=== PATIENT | male | born 1950 | race Caucasian/White ===

== ENCOUNTER 2016-10-13 19:57 | Observation (INO) | payer OTHER ==
[~2016-10-13] VITALS: Ht 190.5 cm; Wt 108.9 kg
[2016-10-13 21:29] LABS: HEMATOCRIT 44.4 % (38.0-50.0); MCH 30.5 PG (29.0-34.0); MCHC 35.4 G/DL (30.0-36.0); MCV 86.2 FL (86-99); MEAN PLAT.VOLUME 10.3 uM^3 (9.0-12.4); PLATELET COUNT 201 K/uL (156-360); RBC DIS.WIDTH-CV 11.7 % (11.8-14.6); RBC DIS.WIDTH-SD 37.2 % (39-53); RED BLOOD COUNT 5.15 M/uL (4.00-5.50); WHITE BLOOD COUNT 10.1 K/uL (4.1-10.2)
[2016-10-13 21:39] LABS: CHLORIDE 94 mEq/L (99-109); POTASSIUM 4.7 mEq/L (3.7-5.4); SODIUM 126 mEq/L (136-147)
[2016-10-13 21:42] LABS: ANION GAP 11 MEQ/L (2-14)
[2016-10-13 21:45] LABS: GFR ESTIMATE (CALCULATED) 50 mL/min/; UREA NITROGEN (BUN) 22 mg/dL (9-23)
[2016-10-13 21:53] LABS: GLUCOSE 574 mg/dL (70-99)
[2016-10-13 22:19] LABS: CARBON DIOXIDE (BICARBONATE) 23.5 MEQ/L (20-31)
[2016-10-13 23:31] LABS: TOTAL BILIRUBIN 0.8 mg/dL (0.0-1.0)
[2016-10-13 23:32] LABS: ALKALINE PHOSPHATASE 72 IU/L (3-129)
[2016-10-13 23:34] LABS: INTER. NORMALIZED RATIO 1.1; PTT 35.8 (25-32)
[2016-10-13 23:35] LABS: DIRECT BILIRUBIN 0.3 mg/dL (0.0-0.3); EOSINOPHIL (%) 0.5 % (0-5); EOSINOPHIL COUNT 0.1 K/uL (0-0.3); IMMATURE GRANULOCYTE (%) 0.9 % (0.0-0.7); IMMATURE GRANULOCYTE COUNT 0.1 K/uL; INSTRUMENT ABS NEUTROPHIL CT 9.1 K/uL; LYMPHOCYTE COUNT 0.4 K/uL (1.0-2.8); MONOCYTE (%) 3.4 % (3-12); MONOCYTE COUNT 0.3 K/uL (0-0.8); NEUTROPHIL (%) 91.5 % (45-76); NEUTROPHIL COUNT 9.1 K/uL (1.8-6.4)
[2016-10-13 23:36] LABS: CREATINE KINASE 85 IU/L (1-294); LIPASE 7 U/L (1.0-51.0)
[2016-10-13 23:37] LABS: TROP-I INTERPRETATION NEGATIVE; TROPONIN-I < 0.01 ng/mL (0.0-0.30)
[2016-10-14] MEDS ORDERED: METFORMIN HCL500 MG PO (00:12)
[2016-10-14] MEDS ORDERED: AMLODIPINE BESY10 MG PO (00:12)
[2016-10-14] MEDS ORDERED: BYSTOLIC5 MG PO (00:12)
[2016-10-14] MEDS ORDERED: STOOL SOFTENER100 MG PO (00:13)
[2016-10-14] MEDS ORDERED: POTASSIUM-9999 MG PO (00:13)
[2016-10-14] MEDS ORDERED: ONE-A-DAY ESSE1 EAC1 PO (00:13)
[2016-10-14] MEDS ORDERED: ASCORBIC ACID500 M3 PO (00:13)
[2016-10-14] MEDS ORDERED: LO-DOSE ASPIRIN81 M2 PO (00:13)
[2016-10-14] MEDS ORDERED: PLAVIX75 MG PO (00:13)
[2016-10-14] MEDS ORDERED: FLUID PILL PO (00:14)
[2016-10-14 00:32] LABS: ADD MIUA? NO; BILIRUBIN NEGATIVE; BLOOD NEGATIVE; COLOR STRAW ((YELLOW)); GLUCOSE (STRIP) >=500; KETONES NEGATIVE; LEUKOCYTES NEGATIVE; NITRITE NEGATIVE; PROTEIN (STRIP) NEGATIVE; SPECIFIC GRAVITY 1.017 (1.000-1.030); UCUL ADDED? NO; UROBILINOGEN 0.2 MG/DL (0.2-1.0)
[2016-10-14 00:59] LABS: POINT-OF-CARE METER ID UU14100415
[2016-10-14 02:27] VITALS: BP 124/60
[2016-10-14 02:44] LABS: POINT-OF-CARE METER ID UU13113700
[2016-10-14 05:27] LABS: POINT-OF-CARE METER ID UU13113831
[2016-10-14 06:29] LABS: EOSINOPHIL (%) 0.1 % (0-5); HEMATOCRIT 44.3 % (38.0-50.0); IMMATURE GRANULOCYTE COUNT 0.1 K/uL; INSTRUMENT ABS NEUTROPHIL CT 6.2 K/uL; LYMPHOCYTE COUNT 0.6 K/uL (1.0-2.8); MCH 31.1 PG (29.0-34.0); MCHC 35.2 G/DL (30.0-36.0); MCV 88.2 FL (86-99); MEAN PLAT.VOLUME 10.1 uM^3 (9.0-12.4); MONOCYTE (%) 2.3 % (3-12); MONOCYTE COUNT 0.2 K/uL (0-0.8); NEUTROPHIL (%) 87.5 % (45-76); NEUTROPHIL COUNT 6.2 K/uL (1.8-6.4); PLATELET COUNT 182 K/uL (156-360); RBC DIS.WIDTH-CV 11.9 % (11.8-14.6); RED BLOOD COUNT 5.02 M/uL (4.00-5.50); WHITE BLOOD COUNT 7.1 K/uL (4.1-10.2)
[2016-10-14 07:01] LABS: ALKALINE PHOSPHATASE 73 IU/L (3-129); ANION GAP 8 MEQ/L (2-14); C-REACTIVE PROTEIN 139.7 MG/L (0-10); CHLORIDE 100 MEQ/L (99-109); GFR ESTIMATE (CALCULATED) > 59 mL/min/; GLUCOSE 328 mg/dL (70-99); MAGNESIUM 2.3 mg/dl (1.3-2.7); POTASSIUM 4.6 MEQ/L (3.7-5.4); SAMPLE HEMOLYSIS CHECK 0; SAMPLE ICTERIC CHECK 0; SAMPLE LIPEMIA CHECK 0; TOTAL BILIRUBIN 0.5 MG/DL (0.0-1.0); UREA NITROGEN (BUN) 24 mg/dL (9-23)
[2016-10-14 07:05] LABS: SODIUM 133 MEQ/L (136-147)
[2016-10-14 08:00] VITALS: BP 132/66
[2016-10-14 08:22] LABS: Estimated Average Glucose 246 mg/dL (70-123); HEMOGLOBIN A1c (GLYCOHEMOGLOB) 10.2 % HGB (Below 5.7)
[2016-10-14 08:30] LABS: ERTH.SED.RATE 24 MM/HR (0-20)
[2016-10-14 11:52] VITALS: BP 136/64
[2016-10-14] MEDS ORDERED: BENADRYL25 MG PO (12:50)
[2016-10-14] MEDS ORDERED: PREDNISONE5 MG PO (12:50)
[2016-10-14] MEDS ORDERED: FAMOTIDINE20 MG PO (12:50)
[2016-10-14 14:17] LABS: POINT-OF-CARE METER ID UU13113831
== END 2016-10-14 14:24 | disposition home or self-care (01) ==
LOC: EME 19:57 → EDOF 10-14 00:39 → 5WEST 10-14 02:08
PROVIDERS: Emergency Medicine; Hospitalist; Internal Medicine; Physician Assistant Medical
DX: L27.0 Generalized skin eruption due to drugs and medicaments taken internally (principal); T37.0X5A Adverse effect of sulfonamides, initial encounter; R50.9 Fever, unspecified; E11.65 Type 2 diabetes mellitus with hyperglycemia; E87.1 Hypo-osmolality and hyponatremia; E86.0 Dehydration; I10 Essential (primary) hypertension; I25.10 Atherosclerotic heart disease of native coronary artery without angina pectoris; M50.30 Other cervical disc degeneration, unspecified cervical region; Z85.828 Personal history of other malignant neoplasm of skin; E83.51 Hypocalcemia; Z95.5 Presence of coronary angioplasty implant and graft; E78.5 Hyperlipidemia, unspecified
CPT/HCPCS: 71020; 80048; 80053; 80076; 81003; 82010; 82550; 82803; 82948; 83036; 83605; 83690; 83735; 84484; 85025; 85027; 85610; 85651; 85730; 86140; 86308; 87040; 87651 90; 93005; 99281; 99285; G0378; J1200; J1650; J1815; J3480; J7030; S0028